=== PATIENT | female | born 1950 | race Caucasian/White ===

== ENCOUNTER 2020-12-26 22:40 | Emergency (ER) | payer OTHER ==
[~2020-12-26] VITALS: Ht 167.6 cm; Wt 74.8 kg
[~2020-12-26 22:40] MED LIST: ANTIVERT25 M1 PO; CATAFLAM50 MG; CELEBREX100 MG PO; CLONAZEPAM1 MG PO; CYMBALTA30 MG PO; Glucophage PO; Lantus 1000 U/10 ML SUBCUTANEO; METFORMIN HCL500 MG; NABUMETONE750 MG PO; NEURONTIN600 MG; NEURONTIN800 MG PO; ORPH100T PO; TRAM1TAB98 PO; TROMBONEX CAPSU1 CAP PO; ULTRAM50 MG; ZOLOFT25 MG
[2021-01-08] MEDS ORDERED: TRAZODONE HCL150 MG (16:52)
== END 2020-12-27 01:46 | disposition home or self-care (01) ==
LOC: ER 22:40
DX: S20.122A Blister (nonthermal) of breast, left breast, initial encounter (principal); R51.9 Headache, unspecified; X08.8XXA Exposure to other specified smoke, fire and flames, initial encounter; Y93.G3 Activity, cooking and baking; Y92.098 Other place in other non-institutional residence as the place of occurrence of the external cause; Y99.8 Other external cause status

== ENCOUNTER 2020-12-29 15:58 | Emergency (ER) | payer OTHER ==
[~2020-12-29] VITALS: Ht 162.6 cm; Wt 68.0 kg
[2020-12-29] MEDS ORDERED: TYLENOL (16:22)
[2021-01-08] MEDS ORDERED: TRAZODONE HCL150 MG (16:52)
== END 2020-12-29 20:34 | disposition home or self-care (01) ==
LOC: ER 15:58
DX: T21.11XA Burn of first degree of chest wall, initial encounter (principal); X10.0XXA Contact with hot drinks, initial encounter; Y93.89 Activity, other specified; Y92.89 Other specified places as the place of occurrence of the external cause; Y99.8 Other external cause status

== ENCOUNTER → 2021-01-08 | Emergency (ER) | payer OTHER ==
[~2021-01-08] VITALS: Ht 152.4 cm; Wt 68.0 kg
[~2021-01-08] MED LIST changes: +TRAZODONE HCL150 MG; +TYLENOL
== END | disposition home or self-care (01) ==
LOC: ER 16:32
DX: N61.0 Mastitis without abscess (principal); T21.21XS Burn of second degree of chest wall, sequela; V00-Y99 External causes of morbidity

== ENCOUNTER → 2021-05-17 | Emergency (ER) | payer OTHER ==
[~2021-05-17] VITALS: Ht 160 cm; Wt 68.0 kg
== END | disposition home or self-care (01) ==
LOC: ER 22:49
DX: M25.552 Pain in left hip (principal); Z53.29 Procedure and treatment not carried out because of patient's decision for other reasons; M79.7 Fibromyalgia; I10 Essential (primary) hypertension; E11.9 Type 2 diabetes mellitus without complications; M19.90 Unspecified osteoarthritis, unspecified site